=== PATIENT | female | born 1965 | race Caucasian/White ===

== ENCOUNTER 2018-03-12 08:51 | Emergency (ER) | payer MEDICAID, OTHER ==
[2018-03-12 09:02] VITALS: O2SAT 100
--- NOTE | 2018-03-12 09:50 | ED PDOC ---
HPI: Back Time Seen by Provider: 03/12/18 09:02 Chief Complaint (Nursing): Back Pain Chief Complaint (Provider): Back Pain History Per: Patient History/Exam Limitations: no limitations Onset/Duration Of Symptoms: Days (x4) Current Symptoms Are (Timing): Still Present Additional Complaint(s): 52-year-old female, with no significant past medical history, presenting for evaluation of lower back pain x4 days. Patient reports heavy lifting 4 days prior to onset of symptoms. She reports her pain began on Wednesday and she's been taking Ibuprofen with some relief of symptoms. She states pain is worse on her left than the right, and is exacerbated by walking, sitting, and lying down. She denies any trauma, numbness, tingling, or weakness in legs. Patient also reports a history of similar symptoms in the past after heavy lifting. PMD: Dr. Vega Past Medical History Reviewed: Historical Data, Nursing Documentation, Vital Signs Vital Signs: Last Vital Signs Temp 98.1 F 03/12/18 09:17 Pulse 90 03/12/18 09:17 Resp 18 03/12/18 09:17 BP 138/91 H 03/12/18 09:17 Pulse Ox 100 03/12/18 09:17 - Medical History PMH: No Chronic Diseases Denies: Chronic Kidney Disease - Surgical History Surgical History: No Surg Hx - Family History Family History: States: Unknown Family Hx - Home Medications Home Medications: Ambulatory Orders Medication Instructions Recorded Aspirin [Aspirin Chewable] 81 mg PO DAILY #0 chew 12/26/14 Metoprolol Tartrate [Lopressor] 25 mg PO Q12 #0 tab 12/26/14 - Allergies Allergies/Adverse Reactions: Allergies Allergy/AdvReac Type Severity Reaction Status Date / Time No Known Allergies Allergy Verified 03/12/18 09:17 Review of Systems ROS Statement: Except As Marked, All Systems Reviewed And Found Negative Musculoskeletal: Positive for: Back Pain (lower) Physical Exam - Reviewed Nursing Documentation Reviewed: Yes Vital Signs Reviewed: Yes - Physical Exam Appears: Positive for: Non-toxic, In Acute Distress (mild painful distress) Head Exam: Positive for: ATRAUMATIC, NORMAL INSPECTION, NORMOCEPHALIC Skin: Positive for: Normal Color, Warm, Dry. Negative for: Rash Eye Exam: Positive for: EOMI, Normal appearance, PERRL Neck: Positive for: Normal, Painless ROM, Supple Cardiovascular/Chest: Positive for: Regular Rate, Rhythm. Negative for: Murmur Respiratory: Positive for: Normal Breath Sounds. Negative for: Respiratory Distress Gastrointestinal/Abdominal: Positive for: Normal Exam, Soft. Negative for: Tenderness Back: Positive for: Other (tenderness to bilateral lower back, negative straight leg raise). Negative for: Vertebral Tenderness Extremity: Positive for: Normal ROM. Negative for: Deformity Neurologic/Psych: Positive for: Alert, Oriented (x3). Negative for: Motor/ Sensory Deficits - ECG O2 Sat by Pulse Oximetry: 100 (RA) Pulse Ox Interpretation: Normal Medical Decision Making Medical Decision Making: Impression: Lower back pain Plan: -Urine dipstick -Urine test -Flexeril 10mg PO -Toradol 30mg IM -X-ray lumbar spine -Reevaluation Scribe Attestation: Documented by Javad De La Torre, acting as a scribe for Miriam Long MD. Provider Scribe Attestation: All medical record entries made by the Scribe were at my direction and personally dictated by me. I have reviewed the chart and agree that the record accurately reflects my personal performance of the history, physical exam, medical decision making, and the department course for this patient. I have also personally directed, reviewed, and agree with the discharge instructions and disposition. Disposition - Disposition
[2018-03-12 13:10] VITALS: BP 142/89; PULSE 80; RESP 17; TEMP 97.6
--- NOTE | 2018-03-12 15:31 | RAD ---
Date of service: 03/12/2018 PROCEDURE: Radiographs of the Lumbar Spine. HISTORY: Bilateral lower back pain COMPARISON: No prior. FINDINGS: BONES: Normal alignment. No listhesis. No fracture. DISC SPACES: Unremarkable. OTHER FINDINGS: None. IMPRESSION: Unremarkable radiographs of the lumbar spine.
== END 2018-03-12 13:09 | disposition home or self-care (01) ==
LOC: H.ER 08:51
DX: M54.5 Low back pain (principal); Z79.82 Long term (current) use of aspirin
CPT/HCPCS: 72114; 81025; 96372; 99283; J1885